=== PATIENT | female | born 1965 | race African-American/Black ===

== ENCOUNTER 2016-09-25 09:27 | Emergency (ER) | payer BC ==
[~2016-09-25] VITALS: Ht 157.5 cm; Wt 111.1 kg
[~2016-09-25 09:27] MED LIST: ASPI-482 PO; ATOR40TA59 PO; CETI10TA16 PO; CHOL10007 PO; CITA20TA5 PO; CYAN25008 PO; FERROUS GLUCON325 M1 PO; HYDR25TA9 PO; LISI10TA2 PO; MAGN250T5 PO; METO25TA9 PO; MULT1TAB97 PO; MV,C400T2 PO; OMEP20CA9 PO; POTA500T5 PO; PRAS10TA4 PO; SUCR1TAB29 PO; TRAZ150T55 PO; ZINC15TA2 PO
[2016-09-25 10:10] VITALS: BP 122/58
[2016-09-25] MEDS ORDERED: DEXAMETHASONE SOD PHOS 20 MG/5 ML VIAL. IM ONE (11:00)
[2016-09-25] MEDS ORDERED: HYDR-971 PO (11:22)
--- NOTE | 2016-09-25 11:22 | PHYS DOC ---
Past Medical History Past Medical History: Anxiety Additional Past Medical Histor: increased stress level d/t terminally ill father. Past Surgical History: Other Additional Past Surgical Histo: fatty tumor removed. Alcohol Use: None Drug Use: None Adult General Chief Complaint Chief Complaint: HIP PAIN HPI HPI Patient is a 51 year old female presents with complaint of atraumatic left hip pain for the past 24 hours. Patient denies any history of inflammatory arthritide's. She denies any previous fractures or dislocations to her left hip. Review of Systems Review of Systems Constitutional: Denies fever or chills [] Eyes: Denies change in visual acuity, redness, or eye pain [] HENT: Denies nasal congestion or sore throat [] Respiratory: Denies cough or shortness of breath [] Cardiovascular: No additional information not addressed in HPI [] GI: Denies abdominal pain, nausea, vomiting, bloody stools or diarrhea [] : Denies dysuria or hematuria [] Musculoskeletal: Denies back pain or joint pain [] Integument: Denies rash or skin lesions [] Neurologic: Denies headache, focal weakness or sensory changes [] Endocrine: Denies polyuria or polydipsia [] Current Medications Current Medications Current Medications Medications (Trade) Dose Ordered Sig/Shilpa Start Time Stop Time Status Last Admin Dose Admin Dexamethasone Sodium Phosphate (Decadron) 10 mg 1X ONCE 09/25/16 11:00 09/25/16 11:01 DC 09/25/16 11:01 10 MG Allergies Allergies Allergies Coded Allergies Type Severity Reaction Last Updated Verified No Known Drug Allergies 01/16/16 No Physical Exam Physical Exam Constitutional: Well developed, well nourished, no acute distress, non-toxic appearance. [] HENT: Normocephalic, atraumatic, bilateral external ears normal, oropharynx moist, no oral exudates, nose normal. [] Eyes: PERRLA, EOMI, conjunctiva normal, no discharge. [] Neck: Normal range of motion, no tenderness, supple, no stridor. [] Cardiovascular:Heart rate regular rhythm, no murmur [] Lungs & Thorax: Bilateral breath sounds clear to auscultation [] Abdomen: Bowel sounds normal, soft, no tenderness, no masses, no pulsatile masses. [] Skin: Warm, dry, no erythema, no rash. [] Back: No tenderness, no CVA tenderness. [] Extremities: A since lower back and left hip were exposed for evaluation. There are no skin lesions overlying her lower back or left hip. There is tenderness to palpation the posterior lateral aspect of patient's left hip without palpable defect or deformity. There is no heat to the touch. Neurologic: Alert and oriented X 3, normal motor function, normal sensory function, no focal deficits noted. [] Psychologic: Affect normal, judgement normal, mood normal. [] Current Patient Data Vital Signs Vital Signs Date Time Temp Pulse Resp B/P Pulse Ox O2 Delivery O2 Flow Rate FiO2 09/25/16 10:10 97.9 92 18 122/58 98 Room Air 97.9 Lab Values Laboratory Tests Test 09/25/16 11:03 Glucose (Fingerstick) 137mg/dL (70-99) H EKG EKG [] Radiology/Procedures Radiology/Procedures [] Course & Med Decision Making Course & Med Decision Making Patient reports that she is a diabetic that is controlled by diet and activity. Her Accu-Chek here today is 136. Dragon Disclaimer Dragon Disclaimer This electronic medical record was generated, in whole or in part, using a voice recognition dictation system. Departure Departure Impression: Primary Impression: Trochanteric bursitis of left hip Disposition: HOME, SELF-CARE Condition: GOOD Referrals: GARRY MARSHALL MD (PCP) Patient Instructions: Hip Bursitis, [id number] Additional Instructions: 1. Your blood sugar today is 136. 2. Review the discharge instructions for self-care and reasons to return to the emergency department. 3. Take the medication as prescribed. 4. Contact your primary care doctor today for follow-up appointment to be seen within the next 5-7 days. Scripts Hydrocodone/Apap 5-325 (Lackey 5-325 Tablet)1 Each Tablet1 Tab PO PRN Q6HRS PRN PAIN #15 TAB Prov:AIDAN REARDON 09/25/16 AIDAN REARDON Sep 25, 2016 11:22
== END 2016-09-25 11:33 | disposition home or self-care (01) ==
LOC: ER 09:27
DX: M70.62 Trochanteric bursitis, left hip (principal); F41.9 Anxiety disorder, unspecified
CPT/HCPCS: 82947; 96372; 99283; J1100

== ENCOUNTER 2016-11-11 15:09 | Inpatient (IN) | payer BC ==
[~2016-11-11] VITALS: Ht 165.1 cm; Wt 113.5 kg
[~2016-11-11 15:09] MED LIST changes: +HYDR-971 PO
--- NOTE | 2016-11-11 15:56 | EKG ---
[facility] [address] [place] [address] Test Date: 2016-11-11 Test Time: 15:26:32 Pat Name: BEKA JUAREZ Department: Room: Gender: F Materials Supervisor: : [id number] Requested By: VAIBHAV ROSENTHAL Order Number: [id number] Reading MD: Measurements Intervals [place] Rate: 71 P: 32 [place]: 160 QRS: -12 QRSD: 88 T: 26 QT: 368 QTc: 404 Interpretive Statements SINUS RHYTHM LEFTWARD AXIS OTHERWISE NORMAL ECG RI6.01 Unconfirmed report No previous ECG available for comparison
--- NOTE | 2016-11-11 15:58 | PHYS DOC ---
Past Medical History Past Medical History: Anxiety Additional Past Medical Histor: increased stress level d/t terminally ill father.CARDIAC STENT PLACED 2015 Past Surgical History: Other Additional Past Surgical Histo: fatty tumor removed. Alcohol Use: None Drug Use: None Adult General Chief Complaint Chief Complaint: CHEST PAIN HPI HPI Patient is a 51 year old female who presents with chest discomfort. Patient reports since yesterday she has had discomfort in the middle of her chest. She describes this as "slight pain comes and goes". No clear inciting or mitigating factors. She denies shortness of breath. In addition, she reports a the past couple weeks she has just not been feeling well in general and has been getting lightheaded occasionally. She has been congested and has chronic issues with her allergies and sinuses. She is frustrated because her health has gone downhill since her father recently. She believes some of her symptoms may be due to the medication she is on. She has not taken anything for her acute symptoms. Review of Systems Review of Systems Constitutional: Intermittent lightheadedness, feeling poorly in general. Denies fever or chills Eyes: Denies change in visual acuity or eye pain HENT: Chronic sinus congestion Respiratory: Denies cough or shortness of breath Cardiovascular: Midsternal chest discomfort GI: Denies abdominal pain, nausea, vomiting, bloody stools or diarrhea : Denies dysuria or hematuria Musculoskeletal: Denies back pain or joint pain Integument: Denies rash or skin lesions Neurologic: Denies headache, focal weakness or sensory changes Allergies Allergies Allergies Coded Allergies Type Severity Reaction Last Updated Verified No Known Drug Allergies 01/16/16 No Physical Exam Physical Exam Constitutional: Well developed, well nourished, no acute distress, non-toxic appearance HENT: Normocephalic, atraumatic, bilateral external ears normal Eyes: EOMI, conjunctiva normal, no discharge Neck: Normal range of motion, no stridor Cardiovascular: Heart rate normal, regular rhythm, no murmur Lungs & Thorax: Bilateral breath sounds clear to auscultation Abdomen: Bowel sounds normal, soft, non-distended, no TTP Skin: Warm, dry, no erythema, no rash Extremities: No obvious deformity, no edema Neurologic: Alert and oriented X 3, no gross deficits noted Psychologic: Tearful Current Patient Data Vital Signs Vital Signs Date Time Temp Pulse Resp B/P Pulse Ox O2 Delivery O2 Flow Rate FiO2 11/11/16 16:47 72 124/60 97 Room Air 11/11/16 15:20 98.0 18 98.0 Lab Values Laboratory Tests Test 11/11/16 15:45 11/11/16 16:00 White Blood Count 7.5x10^3/uL (4.0-11.0) Red Blood Count 4.53x10^6/uL (3.50-5.40) Hemoglobin 12.4g/dL (12.0-15.5) Hematocrit 37.7% (36.0-47.0) Mean Corpuscular Volume 83fL (79-100) Mean Corpuscular Hemoglobin 28pg (25-35) Mean Corpuscular Hemoglobin Concent 33g/dL (31-37) Red Cell Distribution Width 14.9% (11.5-14.5) H Platelet Count 224x10^3/uL (140-400) Neutrophils (%) (Auto) 54% (31-73) Lymphocytes (%) (Auto) 36% (24-48) Monocytes (%) (Auto) 8% (0-9) Eosinophils (%) (Auto) 2% (0-3) Basophils (%) (Auto) 1% (0-3) Neutrophils # (Auto) 4.0x10^3uL (1.8-7.7) Lymphocytes # (Auto) 2.7x10^3/uL (1.0-4.8) Monocytes # (Auto) 0.6x10^3/uL (0.0-1.1) Eosinophils # (Auto) 0.2x10^3/uL (0.0-0.7) Basophils # (Auto) 0.1x10^3/uL (0.0-0.2) Sodium Level 146mmol/L (136-145) H Potassium Level 4.1mmol/L (3.5-5.1) Chloride Level 109mmol/L (98-107) H Carbon Dioxide Level 30mmol/L (21-32) Anion Gap 7 (6-14) Blood Urea Nitrogen 17mg/dL (7-20) Creatinine 0.9mg/dL (0.6-1.0) Estimated GFR (Cockcroft-Gault) 79.3 Glucose Level 102mg/dL (70-99) H Calcium Level 9.0mg/dL (8.5-10.1) Troponin I Quantitative < 0.017ng/mL (0.000-0.055) Thyroid Stimulating Hormone (TSH) 0.589uIU/mL (0.358-3.74) Urine Color Yellow Urine Clarity Clear Urine pH 8.0 Urine Specific [place] 1.025 Urine Protein Negativemg/dL (NEG-TRACE) Urine Glucose (UA) Negativemg/dL (NEG) Urine Ketones (Stick) Negativemg/dL (NEG) Urine Blood Negative (NEG) Urine Nitrite Negative (NEG) Urine Bilirubin Negative (NEG) Urine Urobilinogen Dipstick 1.0mg/dL (0.2 mg/dL) Urine Leukocyte Esterase Small (NEG) Urine RBC 0/HPF (0-2) Urine WBC 1-4/HPF (0-4) Urine Squamous Epithelial Cells Occ/LPF Urine Amorphous Sediment Present/HPF Urine Bacteria Few/HPF (0-FEW) Urine Mucus Slight/LPF Laboratory Tests 11/11/16 15:45 Laboratory Tests 11/11/16 15:45 EKG EKG EKG (my read): sinus rhythm, rate 71, normal axis, intervals wnl, no acute ischemic changes Radiology/Procedures Radiology/Procedures CXR: Impression: No acute abnormality is seen. Course & Med Decision Making Course & Med Decision Making Pertinent Labs and Imaging studies reviewed. (See chart for details) Patient is 51-year-old female who presents with chest discomfort. Although patient is vague with her symptoms, must consider ACS especially given the patient has coronary stent. Will check EKG, chest x-ray, labs to evaluate. Dose of aspirin ordered. EKG and imaging results as above. Blood work unremarkable. Discussed results with patient, who continues to have occasional chest discomfort. Discussed with Dr. Robles (covering for Dr. Casas), will admit under his care for further evaluation and treatment. Dragon Disclaimer Dragon Disclaimer This electronic medical record was generated, in whole or in part, using a voice recognition dictation system. Departure Departure Impression: Primary Impression: Chest pain Disposition: ADMITTED INPATIENT Admitting Physician: Kelly Robles Condition: STABLE Referrals: GARRY CASAS MD (PCP) VAIBHAV ROSENTHAL MD Nov 11, 2016 15:58
[2016-11-11 16:00] LABS: BASO # 0.1 x10^3/uL (0.0-0.2); BASO % 1 % (0-3); EOS % 2 % (0-3); HEMATOCRIT 37.7 % (36.0-47.0); HEMOGLOBIN 12.4 g/dL (12.0-15.5); LYMPH # 2.7 x10^3/uL (1.0-4.8); LYMPH % 36 % (24-48); MEAN CORPUSCULAR HEMOGLOBIN 28 pg (25-35); MEAN CORPUSCULAR HGB CONC 33 g/dL (31-37); MEAN CORPUSCULAR VOLUME 83 fL (79-100); MONO % 8 % (0-9); NEUT % 54 % (31-73); PLATELET COUNT 224 x10^3/uL (140-400); RED BLOOD COUNT 4.53 x10^6/uL (3.50-5.40); RED CELL DISTRIBUTION WIDTH 14.9 % (11.5-14.5); WHITE BLOOD COUNT 7.5 x10^3/uL (4.0-11.0)
--- NOTE | 2016-11-11 16:19 | RAD ---
PA and lateral chest radiographs 11/11/2016 Clinical history: Chest discomfort. History of coronary artery disease with stent placement. PA and lateral digital radiographs of the chest were obtained. Comparison study is dated 08/15/2015. The cardiac silhouette is borderline enlarged. The thoracic aorta is tortuous. No acute pulmonary infiltrate is seen. No pleural effusion or pneumothorax is noted. Degenerative changes are seen involving the thoracic spine and both shoulders. Impression: No acute abnormality is seen.
[2016-11-11 16:23] LABS: BILIRUBIN,URINE NEGATIVE (NEG); GLUCOSE,URINE NEGATIVE (NEG); NITRITE,URINE NEGATIVE (NEG); PROTEIN,URINE NEGATIVE (NEG-TRACE)
[2016-11-11 16:34] LABS: BACTERIA,URINE FEW /HPF (0-FEW); RBC,URINE 0 /HPF (0-2); SQUAMOUS EPITHELIAL CELL,UR OCC /LPF
[2016-11-11 16:36] LABS: CREATININE 0.9 mg/dL (0.6-1.0); GFR 79.3; POTASSIUM 4.1 mmol/L (3.5-5.1)
[2016-11-11] MEDS ORDERED: ONDANSETRON PF 4 MG/2 ML VIAL. IV PRN (18:00)
[2016-11-11] MEDS ORDERED: MORPHINE SULFATE 4 MG/ML DISP.SYRIN. IV PRN (18:00)
--- NOTE | 2016-11-11 18:08 | ACF ---
Admission Forms Criteria CARDIOLOGY GRG Clinical Indications for Admission to Inpatient Care ( Place 'X' for any and all applicable criteria): Hospital admission is needed for appropriate care of the patient because of ANY ONE of the following (1): [ ] I. Hemodynamic instability as indicated by ALL of the following (1)(2)(3) (4)(5) [ ]a) Vital signs or other findings not as expected for chronic patient condition or baseline [ ]b) Instability indicated by ANY ONE of the following: [ ]i) Hypotension [ ]ii) Symptomatic Tachycardia unresponsive to treatment ( e.g., analgesia, fluids, sedation as indicated) [ ]iii) Inadequate perfusion indicated by ANY ONE of the following: [ ] 1) Lactic acidosis (> 2 mmol/L) [ ] 2) New abnormal capillary refill (> 3 seconds) [ ] 3) Reduced urine output [ ] 4) New altered mental status [ ]iv) Orthostatic vital sign changes unresponsive to treatment (e.g., fluids) [ ]v) IV inotropic or vasopressor medication required to maintain adequate blood pressure or perfusion [ ] II. Severe heart failure as indicated by ANY ONE of the following(17)(18) [ ]a) Respiratory distress [ ]b) Hypotension [ ]c) Anasarca (refractory to outpatient therapy) [ ]d) Cardiac arrhythmias of immediate concern [ ]e) Myocardial ischemia [ ] III. Cardiac arrhythmias or findings of immediate concern indicated by ANY ONE of the following (19)(20): [ ] a) Heart rhythms that are inherently dangerous or unstable indicated by ANY ONE of the following (21)(22)(23): [ ] i) Resuscitated ventricular fibrillation or cardiac arrest [ ] ii) Ventricular escape rhythm [ ] iii) Sustained ventricular tachycardia (30 seconds or more of ventricular rhythm at greater than 100 beats per minute) [ ] iv) Nonsustained ventricular tachycardia and ANY ONE of the following: [ ] 1) Suspected cardiac ischemia as cause or consequence of ventricular tachycardia [ ] 2) In setting of acute myocarditis [ ] b) Unstable cardiac conduction defects indicated by ANY ONE of the following(23)(24)(25) [ ] i) Type II second-degree atrioventricular block [ ]ii) Third-degree atrioventricular block [ ]iii) New-onset left bundle branch block with suspected myocardial ischemia [ ]c) Any heart rhythm and ANY ONE of the following (21)(22)(26)(27) (28) [ ] i) Continuous long-term ECG monitoring needed (e.g., initiation of drug requiring monitoring for more than 24 hours) [ ] ii) Patient has automatic implanted cardioverter defibrillator that is repeatedly firing, malfunctioning, or in need of immediate adjustment of settings beyond the scope of ambulatory or observation care [ ]d) Heart rhythms of concern due to ANY ONE of the following: [ ] i) Hypotension [ ] ii) Respiratory distress [ ] iii) Association with other significant symptoms (e.g., bradycardia with syncope or ongoing dizziness, supraventricular tachycardia with chest pain (14)(15)(17) [ ] IV. Monitoring for cardiac contusion beyond the scope of observation care needed [A](30)(31)(32) [ ] V. Surgical or device complication (e.g., valve replacement complication , pacemaker dysfunction) (35)(41)(44)(45)(46) [ ] . Inpatient palliative care needed. [B](49) Also use Inpatient Palliative Care Criteria [ ] VII. Nonbacterial thrombotic (marantic) endocarditis (36)(43)(47)(48) [X] VIII. Cardiology condition, symptom, or finding for which emergency and observation care has failed or are not considered appropriate. [ ] IX. Acute valvular disease requiring inpatient as indicated by ANY ONE of the following (41) [ ]a) Acute valvular regurgitation (42) [ ]b) Noninfectious valvulitis (43) [ ]c) Obstructive valve thrombosis [ ]d) Paravalvular leak [ ]e) Other significant valvular disorder remaining after emergency or observation level of care (as appropriate) [ ]X. Pericardial disease requiring inpatient treatment as indicated by ANY ONE of the following (33)(34)(35)(36)(37) [ ]a) Suspected tamponade (38)(39)(40) [ ]b) Hemopericardium [ ]c) Other significant pericardial disorder remaining after emergency or observation level of care (as appropriate) [ ] XI. Cardiac ischemia beyond scope of emergency and observation care. [ ] XII. Hypertension requiring inpatient treatment as indicated by ANY ONE of the following (6)(7)(8) [ ]a) SBP greater than 220 mm Hg or DBP greater than 120 mmHg despite treatment [ ]b) SBP greater than 140 mm Hg or DBP greater than 100 mm Hg with evidence of acute end organ damage as indicated by ANY ONE of the following [ ] i) Encephalopathy [ ] ii) Acute renal failure as indicated by new onset of ANY ONE of the following (9)(10)(11)(12)(13) [ ]1) 3-fold rise in serum creatinine from baseline [ ]2) Serum creatinine greater than 4 mg/dL ( 354 micromoles/L) with acute rise greater than 0.5 mg/dL (44.2 micromoles/L) [ ]3) Reduction of more than 75% in estimated glomerular filtration rate from baseline [ ]4) Estimated glomerular filtration rate less than 35 mL/min/1.73m2 (0.59 mL/sec/1.73m2) in child up to 18 years of age [ ]5) Cessation of urine output indicated by ALL of the following [ ]A. Adequate volume status [ ]B. Inadequate urine output as indicated by ANY ONE of the following [ ]a. Urine output less than 0.3 mL/kg/hr for 24 hours [ ]b. Anuria (urine output less than 0.1 mL/kg/hr) for 12 hours [ ] iii) Aortic dissection [ ] iv) Myocardial Ischemia [ ] v) Left ventricular heart failure [ ]vi) Retinal Hemorrhage [ ]vii) Other significant finding [ ]c) Hypertension in child requiring inpatient treatment as indicated by ALL of the following(14)(15)(16) [ ] i) Outpatient treatment not effective, not available, or not appropriate [ ]ii) SBP or DBP greater than 95th percentile for age [ ]iii) Evidence of acute end organ damage as indicated by ANY ONE of the following [ ]1) Altered mental status [ ]2) Acute renal failure as indicated by new onset of ANY ONE of the following(9)(10)(11)(12)(13) [ ]A. 3-fold rise in serum creatinine from baseline [ ]B. Serum creatinine greater than 4 mg/dL (354 micromoles/L) with acute rise greater than 0.5 mg/dL (44.2 micromoles/L) [ ]C. Reduction of more than 75% in estimated glomerular filtration rate from baseline [ ]D. Estimated glomerular filtration rate less than 35 mL/min/1.73m2 (0.59 mL/sec/1.73m2) in child up to 18 years of age [ ]E. Cessation of urine output indicated by ALL of the following [ ]a. Adequate volume status [ ]b. Inadequate urine output as indicated by ANY ONE of the following [ ]i) Urine output less than 0.3 mL/kg/hr for 24 hours [ ]ii) Anuria ( urine output less than 0.1 mL/kg/hr) for 12 hours [ ]3) Severe headache [ ]4) Visual disturbance [ ]5) Retinal hemorrhage [ ]6) Other significant finding [ ]XIII. Complications of transplanted heart indicated by ANY ONE of the following(61): [ ]a) Acute graft rejection requiring inpatient management (eg, intravenous immunosuppression)(62)(63) [ ]b) Acute graft heart failure indicated by ANY ONE of the following(64): [ ]i) Hemodynamic instability [ ]ii) Cardiac arrhythmias of immediate concern [ ]iii) Pulmonary edema that is very severe (eg, mechanical ventilation needed, imminent or likely, need for 100% oxygen to keep oxygen saturation above 90%) [ ]iv) Pulmonary edema that is persistent as indicated by ALL of the following: [ ]1) New need for oxygen therapy to keep oxygen saturation above 90% (or increased FiO2 need from baseline) [ ]2) Has not improved sufficiently with emergency department or observation care IV diuretics or other heart failure treatments[E] [ ]v) Altered mental status that is severe or persistent [ ]vi) Increased creatinine (new on laboratory test) with reduction of more than 50% in estimated glomerular filtration rate from baseline [ ]vii) Progressively (ongoing) rising creatinine (known from past laboratory test) with reduction of more than 25% in estimated glomerular filtration rate from baseline [ ]viii) Acute renal failure [ ]ix) Acute peripheral ischemia (eg, examination shows pulseless, cool, mottled, or cyanotic extremity) [ ]x) Pulmonary artery catheter monitoring needed [ ]xi) Other sign or symptom of heart failure requiring inpatient treatment (ie, too severe or not responsive to outpatient and observation care treatment) [ ]c) Infection requiring inpatient management (eg, Hemodynamic instability, need for intravenous antimicrobial treatment)(66)(67)(68)(69)(70) [ ]d) Cardiac allograft vasculopathy requiring inpatient management ( eg evidence of cardiac ischemia)(71) [ ]e) Other complication of transplanted heart (eg, stroke, severe pulmonary hypertension, severe valvular dysfunction) requiring inpatient management(72) The original [facility] content created by [facility] has been revised. The portions of the content which have been revised are identified through the use of italic text or in bold, and [facility] has neither reviewed nor approved the modified material. All other unmodified content is copyright [email or web address]. Please see references footnoted in the original [facility] edition 2016 Admission Criteria Met?: Yes CHUY MATA Nov 11, 2016 18:08
[2016-11-11] MEDS ORDERED: ASPIRIN 81 MG TAB.CHEW PO ONE (18:15)
--- NOTE | 2016-11-11 19:10 | PDOC ---
Provider Note Provider Note H&P dictated [id number] Jarad MILLS MD Nov 11, 2016 19:10
[2016-11-11] MEDS: METOPROLOL SUCC 24HR ER 25 MG TAB.ER.24H. PO SCH (20:00)
[2016-11-11] MEDS: LISINOPRIL 10 MG TABLET PO SCH (20:00)
[2016-11-11] MEDS: CITALOPRAM 20 MG TABLET. PO SCH (20:05)
[2016-11-11] MEDS: ATORVASTATIN CALCIUM 40 MG TABLET. PO SCH (20:30)
[2016-11-11] MEDS: traZODone 50 MG TABLET. PO SCH (20:30)
[2016-11-11 21:06] VITALS: BP 131/77
--- NOTE | 2016-11-11 22:17 | HP ---
ADMIT DATE: 11/11/2016 ADMISSION DIAGNOSIS: Chest pain. HISTORY OF PRESENT ILLNESS: This is a 51-year-old obese -[place] female, whose health problems began in 08/2015 after her father . She normally sees Dr. Casas in the office. She has a history of heart disease, having had stents placed soon after her father . She has done relatively well this past year, but developed some bursitis pain in her hips and it has progressed to her lower back. She saw Dr. Yang in the office, who diagnosed her with that and referred her for therapy. She has been going to physical therapy recently, and she mentioned today that she was not feeling well and was having some vague chest pain. Her head had felt foggy and they encouraged her to come to the Emergency Room, which she did, where she was seen and evaluated. She told the ER doctor that she got some discomfort in the middle of her chest yesterday and she has had some slight pain that had been coming and going. It really was not associated with any activity. She was not short of breath with it. SHE HAS HAD SOME RECENT ALLERGY SYMPTOMS THAT TYPICALLY ARE SEASONAL, BUT A LITTLE EARLIER. She has been feeling frustrated - it sounds like she has been depressed since her father . PAST MEDICAL HISTORY: Also significant for anxiety. PAST SURGICAL HISTORY: Procedures include cardiac stent last year and fatty lipomatous tumor removed. She has had multiple ____. She also has a history of hypertension, hyperlipidemia, sleep apnea, diverticulosis, colon polyps, irritable bowel, GERD, osteoarthritis, diabetes, depression, anxiety, and anemia. ALLERGIES: She has no known drug allergies. HOME MEDICATIONS: Include aspirin 81 mg daily, atorvastatin 40 mg at bedtime, cetirizine 10 mg daily, vitamin D 1000 units daily, citalopram 20 mg at bedtime, B12 1000 mcg daily, iron gluconate 325 mg daily, [place] 5/325 one tablet q. 6 h. p.r.n. pain, lisinopril 10 mg daily, magnesium oxide 250 mg daily, metoprolol 25 mg extended release daily, multivitamin daily, Estroven maximum-strength caplet 400 mcg daily, omeprazole 20 mg daily, Effient 10 mg with breakfast, trazodone 150 mg at bedtime, and zinc oxide 30 mg daily. FAMILY HISTORY: Father in 08/2015 with terminal illness. SOCIAL HISTORY: No tobacco or drug use. REVIEW OF SYSTEMS: CONSTITUTIONAL: Some intermittent lightheadedness and general fatigue, but no fever or chills. No recent travel. HEENT: No eye symptoms. Nose: Positive for rhinorrhea and ALLERGY SYMPTOMS. Eyes have not been watery. RESPIRATORY: Negative for cough. CARDIOVASCULAR: As above. GASTROINTESTINAL: Negative for acute abdominal pain, nausea, vomiting, or change in her stools. GENITOURINARY: Negative for incontinence. MUSCULOSKELETAL: Positive for lumbar back pain and pain into both hips with a history of bursitis for which she is going to therapy. SKIN: No new rashes or lesions. NEUROLOGIC: Vague headache, but no change in her functional status. PSYCHIATRIC: Consistent with prolonged grief and adjustment disorder, likely depression. PHYSICAL EXAMINATION: GENERAL: She is not in any acute distress. She is comfortable. Normal respiratory effort. VITAL SIGNS: Stable. She is afebrile. Blood pressure is normal. HEENT: POSITIVE FOR ALLERGIC FEATURES. There is some sinus congestion. Sclerae are nonicteric. Conjunctivae are clear. Tongue is moist. NECK: Supple. HEART: Regular rate and rhythm. No murmurs heard. LUNGS: Clear. No reproducible chest wall pain is present. ABDOMEN: Obese, soft, nondistended, and nontender without definite masses. EXTREMITIES: No clubbing, cyanosis, or peripheral edema, and no gross neurological deficits. Her affect is somewhat flat and she is a bit frustrated. She does have bilateral trochanteric area hip discomfort and gait is not tested. The symptoms are suggestive of spinal stenosis. LABORATORY DATA: CBC is unremarkable. Chemistries: Sodium is slightly high at 146, chloride 109, and glucose 102. Cardiac enzymes are normal with a troponin less than 0.017. TSH is normal. Urinalysis shows a small leukocyte esterase, but occasional squamous epithelial cell, and there are 1-4 white cells. IMAGING STUDIES: Chest x-ray, no acute abnormality. EKG, no acute changes. ASSESSMENT AND PLAN: Chest pain in a woman, slightly over 1 year and removed from heart catheterization and cardiac stent placement with known coronary artery disease, who has had ongoing depression since her father . PLAN: Since she is at relative high risk for ongoing heart disease, she is admitted for further cardiac evaluation and testing with Cardiology consultation. W Ki MILLS MD DR: Eva JOB#: [id number] / [id number]
[2016-11-11 23:00] VITALS: BP 110/62
[2016-11-12 03:00] VITALS: BP 128/69
[2016-11-12] MEDS: ACETAMINOPHEN 325 MG TABLET. PO PRN ×2 (03:41→17:45)
[2016-11-12 07:20] VITALS: BP 124/75
[2016-11-12] MEDS: PANTOPRAZOLE 40 MG TABLET. PO SCH (07:38)
[2016-11-12] MEDS ORDERED: PRASUGREL 10 MG TABLET. PO SCH (08:00)
[2016-11-12] MEDS: FERROUS SULFATE 325 MG TABLET PO SCH (08:44)
[2016-11-12] MEDS: ASPIRIN ENTERIC COATED 81 MG TABLET.DR. PO SCH (08:44)
[2016-11-12] MEDS: METOPROLOL SUCC 24HR ER 25 MG TAB.ER.24H. PO SCH (08:44)
[2016-11-12] MEDS: MULTIVITAMIN with MINERAL TABLET. PO SCH (08:44)
[2016-11-12] MEDS: CHOLECALCIFEROL (VITAMIN D3) 1,000 UNIT TABLET PO SCH (08:44)
[2016-11-12] MEDS: CETIRIZINE HCL 10 MG TABLET PO SCH (08:44)
[2016-11-12] MEDS: MAGNESIUM OXIDE 400 MG TABLET PO SCH (08:45)
[2016-11-12] MEDS: LISINOPRIL 10 MG TABLET PO SCH (08:47)
[2016-11-12] MEDS: HYDROCODONE/APAP 5/325MG TABLET. PO PRN ×2 (08:47→19:35)
--- NOTE | 2016-11-12 08:57 | PDOC ---
PROGRESS NOTES Subjective Subjective No further chest pain but still having hip and back pain and didn'yt sleep well , cardiac enzymes negative Objective Objective Vital Signs Date Time Temp Pulse Resp B/P Pulse Ox O2 Delivery O2 Flow Rate FiO2 11/12/16 08:47 Room Air 11/12/16 08:44 70 124/75 11/12/16 07:20 97.5 19 97 97.5 Intake and Output 11/12/16 07:00 Intake Total 480 ml Balance 480 ml Intake Oral 480 ml # Voids 1 Physical Exam Abdomen: Normal bowel sounds, Soft Heart: Regular rate Extremities: No clubbing, No cyanosis, No edema General: Alert, Oriented X3, Cooperative HEENT: Atraumatic Lungs: Clear to auscultation MUSCULOSKELETAL: Other (trochanteric tenderness ) Neck: Supple Neuro: Normal speech Psych/Mental Status: Mental status NL Skin: No breakdown Assessment Assessment Problems Medical Problems: (1) Chest pain Status: Acute Plan Plan of Care stress MPI, ( will need 2 days), cardiology consult, will Xray hips and lumbar spine and consult Dr. Antonio as her back and hip pain is limiting her activity Comment Review of Relevant I have reviewed the following items angelo (where applicable) has been applied. Labs Laboratory Tests Test 11/11/16 15:45 11/11/16 16:00 11/11/16 23:44 11/12/16 06:15 White Blood Count 7.5x10^3/uL (4.0-11.0) Red Blood Count 4.53x10^6/uL (3.50-5.40) Hemoglobin 12.4g/dL (12.0-15.5) Hematocrit 37.7% (36.0-47.0) Mean Corpuscular Volume 83fL (79-100) Mean Corpuscular Hemoglobin 28pg (25-35) Mean Corpuscular Hemoglobin Concent 33g/dL (31-37) Red Cell Distribution Width 14.9% (11.5-14.5) Platelet Count 224x10^3/uL (140-400) Neutrophils (%) (Auto) 54% (31-73) Lymphocytes (%) (Auto) 36% (24-48) Monocytes (%) (Auto) 8% (0-9) Eosinophils (%) (Auto) 2% (0-3) Basophils (%) (Auto) 1% (0-3) Neutrophils # (Auto) 4.0x10^3uL (1.8-7.7) Lymphocytes # (Auto) 2.7x10^3/uL (1.0-4.8) Monocytes # (Auto) 0.6x10^3/uL (0.0-1.1) Eosinophils # (Auto) 0.2x10^3/uL (0.0-0.7) Basophils # (Auto) 0.1x10^3/uL (0.0-0.2) Sodium Level 146mmol/L (136-145) Potassium Level 4.1mmol/L (3.5-5.1) Chloride Level 109mmol/L (98-107) Carbon Dioxide Level 30mmol/L (21-32) Anion Gap 7 (6-14) Blood Urea Nitrogen 17mg/dL (7-20) Creatinine 0.9mg/dL (0.6-1.0) Estimated GFR (Cockcroft-Gault) 79.3 Glucose Level 102mg/dL (70-99) Calcium Level 9.0mg/dL (8.5-10.1) Troponin I Quantitative < 0.017ng/mL (0.000-0.055) < 0.017ng/mL (0.000-0.055) < 0.017ng/mL (0.000-0.055) Thyroid Stimulating Hormone (TSH) 0.589uIU/mL (0.358-3.74) Urine Color Yellow Urine Clarity Clear Urine pH 8.0 Urine Specific [place] 1.025 Urine Protein Negativemg/dL (NEG-TRACE) Urine Glucose (UA) Negativemg/dL (NEG) Urine Ketones (Stick) Negativemg/dL (NEG) Urine Blood Negative (NEG) Urine Nitrite Negative (NEG) Urine Bilirubin Negative (NEG) Urine Urobilinogen Dipstick 1.0mg/dL (0.2 mg/dL) Urine Leukocyte Esterase Small (NEG) Urine RBC 0/HPF (0-2) Urine WBC 1-4/HPF (0-4) Urine Squamous Epithelial Cells Occ/LPF Urine Amorphous Sediment Present/HPF Urine Bacteria Few/HPF (0-FEW) Urine Mucus Slight/LPF Laboratory Tests Test 11/11/16 15:45 11/11/16 16:00 11/11/16 23:44 3/7/17 06:15 White Blood Count 7.5x10^3/uL (4.0-11.0) Red Blood Count 4.53x10^6/uL (3.50-5.40) Hemoglobin 12.4g/dL (12.0-15.5) Hematocrit 37.7% (36.0-47.0) Mean Corpuscular Volume 83fL (79-100) Mean Corpuscular Hemoglobin 28pg (25-35) Mean Corpuscular Hemoglobin Concent 33g/dL (31-37) Red Cell Distribution Width 14.9% (11.5-14.5) Platelet Count 224x10^3/uL (140-400) Neutrophils (%) (Auto) 54% (31-73) Lymphocytes (%) (Auto) 36% (24-48) Monocytes (%) (Auto) 8% (0-9) Eosinophils (%) (Auto) 2% (0-3) Basophils (%) (Auto) 1% (0-3) Neutrophils # (Auto) 4.0x10^3uL (1.8-7.7) Lymphocytes # (Auto) 2.7x10^3/uL (1.0-4.8) Monocytes # (Auto) 0.6x10^3/uL (0.0-1.1) Eosinophils # (Auto) 0.2x10^3/uL (0.0-0.7) Basophils # (Auto) 0.1x10^3/uL (0.0-0.2) Sodium Level 146mmol/L (136-145) Potassium Level 4.1mmol/L (3.5-5.1) Chloride Level 109mmol/L (98-107) Carbon Dioxide Level 30mmol/L (21-32) Anion Gap 7 (6-14) Blood Urea Nitrogen 17mg/dL (7-20) Creatinine 0.9mg/dL (0.6-1.0) Estimated GFR (Cockcroft-Gault) 79.3 Glucose Level 102mg/dL (70-99) Calcium Level 9.0mg/dL (8.5-10.1) Troponin I Quantitative < 0.017ng/mL (0.000-0.055) < 0.017ng/mL (0.000-0.055) < 0.017ng/mL (0.000-0.055) Thyroid Stimulating Hormone (TSH) 0.589uIU/mL (0.358-3.74) Urine Color Yellow Urine Clarity Clear Urine pH 8.0 Urine Specific [place] 1.025 Urine Protein Negativemg/dL (NEG-TRACE) Urine Glucose (UA) Negativemg/dL (NEG) Urine Ketones (Stick) Negativemg/dL (NEG) Urine Blood Negative (NEG) Urine Nitrite Negative (NEG) Urine Bilirubin Negative (NEG) Urine Urobilinogen Dipstick 1.0mg/dL (0.2 mg/dL) Urine Leukocyte Esterase Small (NEG) Urine RBC 0/HPF (0-2) Urine WBC 1-4/HPF (0-4) Urine Squamous Epithelial Cells Occ/LPF Urine Amorphous Sediment Present/HPF Urine Bacteria Few/HPF (0-FEW) Urine Mucus Slight/LPF Medications Current Medications Ondansetron HCl (Zofran) 4 mg PRN Q8HRS PRN IV NAUSEA/VOMITING; Start 11/11/16 at 18:00; Stop 11/12/16 at 17:59 Morphine Sulfate 4 mg PRN Q2HR PRN IV PAIN; Start 11/11/16 at 18:00; Stop at 17:59 Acetaminophen (Tylenol) 650 mg PRN Q4HRS PRN PO FEVER Last administered on 03:41; Start 11/11/16 at 18:00; Stop 11/12/16 at 17:59 Aspirin (Children'S Aspirin) 324 mg 1X ONCE PO Last administered on 11/11/16 18:20; Start 11/11/16 at 18:15; Stop 11/11/16 at 18:16; Status DC Aspirin (Ecotrin) 81 mg DAILY PO Last administered on 11/12/16 08:44; Start 11/12/16 at 09:00 Atorvastatin Calcium (Lipitor) 40 mg QHS PO Last administered on 11/11/16 20:30 ; Start 11/11/16 at 21:00 Cetirizine HCl (Zyrtec) 10 mg DAILY PO Last administered on 11/12/16 08:44; Start 11/12/16 at 09:00 Citalopram Hydrobromide (Celexa) 20 mg HS PO ; Start 11/11/16 at 21:00 Acetaminophen/ Hydrocodone Bitart (Lortab 5/325) 1 tab PRN Q6HRS PRN PO PAIN Last administered on 11/12/16 08:47; Start 11/11/16 at 19:15 Lisinopril (Prinivil) 10 mg DAILY PO ; Start 11/11/16 at 20:00 Metoprolol Succinate (Toprol Xl) 25 mg DAILY PO Last administered on 11/12/16 08:44; Start 11/11/16 at 20:00 Prasugrel (Effient) 10 mg DAILYWBKFT PO ; Start 11/12/16 at 08:00 Vitamin D (Vitamin D3) 1,000 unit DAILY PO Last administered on 11/12/16 08:44 ; Start 11/12/16 at 09:00 Ferrous Sulfate (Feosol) 325 mg DAILYWBKFT PO Last administered on 11/12/16 08: 44; Start 11/12/16 at 08:00 Magnesium Oxide (Magnesium Oxide) 200 mg DAILY PO Last administered on 08:45; Start 11/12/16 at 09:00 Multivitamins (Thera M Plus) 1 tab DAILY PO Last administered on 11/12/16 08:44 ; Start 11/12/16 at 09:00 Non-Formulary Medication 400 mcg DAILY PO ; Start 11/12/16 at 09:00; Status UNV Pantoprazole Sodium (Protonix) 40 mg DAILYAC PO Last administered on 11/12/16 07:38; Start 11/12/16 at 07:30 Trazodone HCl (Desyrel) 150 mg QHS PO Last administered on 11/11/16 20:30; Start 11/11/16 at 21:00 Active Scripts Active [place] 5-325 Tablet (Acetaminophen/Hydrocodone Bitart) 1 Each Tablet 1 Tab PO PRN Q6HRS PRN Atorvastatin Calcium 40 Mg Tablet 40 Mg PO QHS 30 Days Effient (Prasugrel Hcl) 10 Mg Tablet 10 Mg PO DAILYWBKFT 30 Days Metoprolol Succinate ( Xl ) (Metoprolol Succinate) 25 Mg Tab.er.24h 25 Mg PO DAILY 30 Days Lisinopril 10 Mg Tablet 10 Mg PO DAILY 30 Days Reported Vitamin B12 (Cyanocobalamin (Vitamin B-12)) 2,500 Mcg Tablet 1,000 Mcg PO Daily Multiple Vitamin (Multivitamin) 1 Each Tablet 1 Each PO DAILY Vitamelts Fast Dissolve (Zinc Oxide) 15 Mg Tab.rapdis 30 Ad PO Magnesium (Magnesium Oxide) 250 Mg Tablet 250 Mg PO DAILY Vitamin D3 (Cholecalciferol (Vitamin D3)) 1,000 Unit Capsule 1,000 Unit PO DAILY Cetirizine Hcl 10 Mg Tablet 10 Mg PO DAILY Ferrous Gluconate 325 Mg Tablet 325 Mg PO DAILY Trazodone Hcl 150 Mg Tablet 150 Mg PO HS Estroven Max Strength Caplet (Mv,Ca,Min/Fa/Herbal No.157) 400 Mcg Tablet 400 Mcg PO DAILY Aspir 81 (Aspirin) 81 Mg Tablet.dr 81 Mg PO DAILY Omeprazole 20 Mg Capsule.dr 20 Mg PO DAILY PRN Citalopram Hbr (Citalopram Hydrobromide) 20 Mg Tablet 20 Mg PO HS Vitals/I & O Vital Sign - Last 24 Hours 11/11/16 11/11/16 11/11/16 11/11/16 15:20 16:47 17:47 21:06 Temp 98.0 97.7 98.0 97.7 Pulse 75 72 80 70 Resp 18 18 B/P 153/72 124/60 144/80 131/77 Pulse Ox 97 97 97 98 O2 Delivery Room Air Room Air Room Air Room Air 11/11/16 11/11/16 11/12/16 11/12/16 21:29 23:00 03:00 07:20 Temp 96.8 96.3 97.5 96.8 96.3 97.5 Pulse 68 68 70 Resp 18 18 19 B/P 110/62 128/69 124/75 Pulse Ox 94 100 97 O2 Delivery Room Air Room Air Room Air Room Air 11/12/16 11/12/16 11/12/16 07:50 08:44 08:47 Pulse 70 B/P 124/75 O2 Delivery Room Air Room Air Intake and Output 11/11/16 11/11/16 11/12/16 15:00 23:00 07:00 Intake Total 480 ml Balance 480 ml Jarad MILLS MD Nov 12, 2016 08:57
[2016-11-12] MEDS ORDERED: [UNRECOGNIZED DRUG - REMARK] PO SCH (09:00)
--- NOTE | 2016-11-12 09:36 | PDOC2 ---
FRANKLIN SANTANA PRINTER FLOOR COVERING ASSISTANT 11/12/16 0936: CARDIAC CONSULT DATE OF CONSULT Date of Consult DATE: 11/12/16 TIME: 09:17 REASON FOR CONSULT Reason for Consult: Chest Pain REFERRING PHYSICIAN Referring Physician: Dr. Sosa SOURCE Source: Chart review, Patient HISTORY OF PRESENT ILLNESS HISTORY OF PRESENT ILLNESS This is a 51 yo female, with a h/o CAD sp PCI/GAMA to LAD, hypertension, hyperlipidemia, and diabetes, who presented with complaints of chest discomfort. Patient is somewhat of a poor historian. Reports occasional intermittent over the last, but she tries to "ignore it all". Has tried Ranexa in the past but due to cost issues had discontinued use. Most recently, patient reports she was in physical therapy for left hip pain/bursitis and developed left chest pain. Describes as stabbing in nature. Has occasional dull chest pain located in her central chest. No associated diaphoresis, nausea/vomiting, or palpitations. No recent orthopnea. Does report ongoing dyspnea and fatigued. H/o FRANCIA; is not compliant with CPAP. Has been lightheaded for the last couple of weeks. When specifics asked, again replies that she "tries to ignore it". Reports compliance with medications. Also s/o left hip pain; is scheduled to have left hip injection today. PAST MEDICAL HISTORY Cardiovascular: CAD (PCI/GAMA to LAD), HTN, Hyperlipidemia Pulmonary: Other (FRANCIA) GI: GERD, Irritable bowel disease Heme/Onc: Anemia NOS Psych: Anxiety, Depression Musculoskeletal: Osteoarthritis Rheumatologic: No pertinent hx Infectious disease: No pertinent hx ENT: No pertinent hx Renal/: No pertinent hx Endocrine: Diabetes Dermatology: No pertinent hx PAST SURGICAL HISTORY Past Surgical History: Other (see PMH) FAMILY HISTORY Family History: Diabetes, Hypertension, Stroke SOCIAL HISTORY Smoke: No ALCOHOL: none Lives: Alone Domestic Violence: Neg CURRENT MEDICATIONS CURRENT MEDICATIONS Current Medications Medications (Trade) Dose Ordered Sig/Shilpa Route PRN Reason Start Time Stop Time Status Last Admin Dose Admin Acetaminophen (Tylenol) 650 mg PRN Q4HRS PRN PO FEVER 11/11/16 18:00 11/12/16 17:59 11/12/16 03:41 Aspirin (Children'S Aspirin) 324 mg 1X ONCE PO 11/11/16 18:15 11/11/16 18:16 DC 11/11/16 18:20 Aspirin (Ecotrin) 81 mg DAILY PO 3/7/17 09:00 11/12/16 08:44 Atorvastatin Calcium (Lipitor) 40 mg QHS PO 11/11/16 21:00 11/11/16 20:30 Cetirizine HCl (Zyrtec) 10 mg DAILY PO 11/12/16 09:00 11/12/16 08:44 Acetaminophen/ Hydrocodone Bitart (Lortab 5/325) 1 tab PRN Q6HRS PRN PO PAIN 11/11/16 19:15 11/12/16 08:47 Metoprolol Succinate (Toprol Xl) 25 mg DAILY PO 11/11/16 20:00 11/12/16 08:44 Vitamin D (Vitamin D3) 1,000 unit DAILY PO 11/12/16 09:00 11/12/16 08:44 Ferrous Sulfate (Feosol) 325 mg DAILYWBKFT PO 11/12/16 08:00 11/12/16 08:44 Magnesium Oxide (Magnesium Oxide) 200 mg DAILY PO 11/12/16 09:00 11/12/16 08:45 Multivitamins (Thera M Plus) 1 tab DAILY PO 11/12/16 09:00 11/12/16 08:44 Pantoprazole Sodium (Protonix) 40 mg DAILYAC PO 11/12/16 07:30 11/12/16 07:38 Trazodone HCl (Desyrel) 150 mg QHS PO 11/11/16 21:00 11/11/16 20:30 ALLERGIES ALLERGIES: Coded Allergies: No Known Drug Allergies (Unverified , 01/16/16) ROS Review of System 14 point ROS conducted with pertinent positives noted above in HPI PHYSICAL EXAM General: Alert, Oriented X3, Cooperative, No acute distress HEENT: Atraumatic, Mucous membr. moist/pink Lungs: Clear to auscultation, Normal air movement Heart: Regular rate, Normal S1, Normal S2 Abdomen: Soft, Other (obese ) Extremities: No edema, Normal pulses Skin: No breakdown, No significant lesion Neuro: Normal speech, Sensation intact Psych/Mental Status: Mental status NL, Other (flat affect ) MUSCULOSKELETAL: Osteoarthritic changes both hands VITALS VITALS Vital Signs Date Time Temp Pulse Resp B/P Pulse Ox O2 Delivery O2 Flow Rate FiO2 11/12/16 08:47 Room Air 11/12/16 08:44 70 124/75 11/12/16 07:20 97.5 19 97 97.5 LABS Lab: Laboratory Tests Test 11/11/16 15:45 11/11/16 16:00 11/11/16 23:44 11/12/16 06:15 White Blood Count 7.5x10^3/uL (4.0-11.0) Red Blood Count 4.53x10^6/uL (3.50-5.40) Hemoglobin 12.4g/dL (12.0-15.5) Hematocrit 37.7% (36.0-47.0) Mean Corpuscular Volume 83fL (79-100) Mean Corpuscular Hemoglobin 28pg (25-35) Mean Corpuscular Hemoglobin Concent 33g/dL (31-37) Red Cell Distribution Width 14.9% (11.5-14.5) Platelet Count 224x10^3/uL (140-400) Neutrophils (%) (Auto) 54% (31-73) Lymphocytes (%) (Auto) 36% (24-48) Monocytes (%) (Auto) 8% (0-9) Eosinophils (%) (Auto) 2% (0-3) Basophils (%) (Auto) 1% (0-3) Neutrophils # (Auto) 4.0x10^3uL (1.8-7.7) Lymphocytes # (Auto) 2.7x10^3/uL (1.0-4.8) Monocytes # (Auto) 0.6x10^3/uL (0.0-1.1) Eosinophils # (Auto) 0.2x10^3/uL (0.0-0.7) Basophils # (Auto) 0.1x10^3/uL (0.0-0.2) Sodium Level 146mmol/L (136-145) Potassium Level 4.1mmol/L (3.5-5.1) Chloride Level 109mmol/L (98-107) Carbon Dioxide Level 30mmol/L (21-32) Anion Gap 7 (6-14) Blood Urea Nitrogen 17mg/dL (7-20) Creatinine 0.9mg/dL (0.6-1.0) Estimated GFR (Cockcroft-Gault) 79.3 Glucose Level 102mg/dL (70-99) Calcium Level 9.0mg/dL (8.5-10.1) Troponin I Quantitative < 0.017ng/mL (0.000-0.055) < 0.017ng/mL (0.000-0.055) < 0.017ng/mL (0.000-0.055) Thyroid Stimulating Hormone (TSH) 0.589uIU/mL (0.358-3.74) Urine Color Yellow Urine Clarity Clear Urine pH 8.0 Urine Specific [place] 1.025 Urine Protein Negativemg/dL (NEG-TRACE) Urine Glucose (UA) Negativemg/dL (NEG) Urine Ketones (Stick) Negativemg/dL (NEG) Urine Blood Negative (NEG) Urine Nitrite Negative (NEG) Urine Bilirubin Negative (NEG) Urine Urobilinogen Dipstick 1.0mg/dL (0.2 mg/dL) Urine Leukocyte Esterase Small (NEG) Urine RBC 0/HPF (0-2) Urine WBC 1-4/HPF (0-4) Urine Squamous Epithelial Cells Occ/LPF Urine Amorphous Sediment Present/HPF Urine Bacteria Few/HPF (0-FEW) Urine Mucus Slight/LPF ECHOCARDIOGRAM ECHOCARDIOGRAM <Conclusion> Normal LV systolic function. EF 65% There is mild pulmonary hypertension. The PA pressure was estimated at 41 mmHg. No significant valvular abnormalities. DATE: 09/05/15 1134 STRESS TEST STRESS TEST Conclusion 1. No EKG evidence of stress-induced ischemia. 2. Technically difficult study. 3. Nuclear imaging suggested a small region of reversible ischemia in the distal anterior septal region. 4. Normal left ventricular systolic function with an ejection fraction of greater than 70%. 5. Moderate risk Lexiscan nuclear stress test. DICTATED and SIGNED BY: VANIA SOSA MD DATE: 09/06/15 1325 HEART CATH HEART CATH Conclusion 1. Mildly elevated LVEDP. 2. Normal LV systolic function. EF 60% 3. 1 V CAD 4. Successful PCI of the mid LAD with implantation of a Xience 3.0/23 GAMA. Recommendations Cardiac Rehabilitation Referral Aggressive Medical Therapy Weight Loss Reduction Program ASA 81mg daily Prasugrel 10mg daily for 1 full year. DATE: 10/09/15 1312 ASSESSMENT/PLAN ASSESSMENT/PLAN 1. Chest Pain, atypical 2. CAD s/p PCI/GAMA to LAD 3. HTN 4. Hyperlipidemia 5. FRANCIA 6. Diabetes 7. Obesity 8. Depression Recommendations Troponin series normal- AMI ruled out. Rest portion of MPI underway today; stress tomorrow. NPO after MN. Dietary/lifestyle modification Secondary prevention. Continue ASA. check lipids FRANCIA treatment. Management of depression per PCP Problems: ERIC GUERIN MD 11/13/16 1048: CARDIAC CONSULT ALLERGIES ALLERGIES: Coded Allergies: No Known Drug Allergies (Unverified , 01/16/16) ASSESSMENT/PLAN ASSESSMENT/PLAN Late entry for 11/12/2016. Pt. seen and examined. Agree with above SOCIAL SERVICES SPECIALIST Note. 51 y.o woman with non-cardiac chdest pain Await MPI testing given her prior history. Will follow peripherally, further testing based on stress results Problems: FRANKLIN SANTANA APRN Nov 12, 2016 09:36 ERIC GUERIN MD Nov 13, 2016 10:48
[2016-11-12] MEDS: methylPREDNISolone ACETATE 40 MG/ML VIAL. IM ONE ×4 (09:45→09:56)
[2016-11-12] MEDS ORDERED: BUPIVACAINE MPF 0.25% 10 ML VIAL. IJ ONE (09:45)
[2016-11-12 10:51] VITALS: BP 139/72
[2016-11-12] MEDS ORDERED: REGADENOSON 0.4 MG/5 ML DISP.SYRIN. IV ONE (11:30)
[2016-11-12] MEDS ORDERED: GADOBUTROL 10 MMOL/10 ML VIAL IV ONE (11:45)
--- NOTE | 2016-11-12 12:26 | RAD ---
PROCEDURE Lumbar spine MRI with and without contrast. HISTORY Lower back pain and lower extremity radiculopathy. TECHNIQUE Multiplanar and multi sequence magnetic resonance imaging of the lumbar spine was performed prior to and following the administration of 10 cc Gadavist intravenous contrast. COMPARISON None. FINDINGS There is no significant listhesis. The vertebral bodies are normal in height and the disc spaces are preserved. No suspicious osseous lesion is seen. The conus terminates at L1. There is slight decreased T1 marrow signal intensity, not within limits to suggest a marrow infiltrative process or anemia. No suspicious enhancing lesion is seen. There is colonic diverticulosis. At L1-L2 and L2-L3, there is no stenosis. At L3-L4, there is endplate remodeling. There is no stenosis. At L4-L5, there is a minimal disc bulge with anterior annular tear and endplate remodeling. There is mild facet arthropathy. There is no stenosis. At L5-S1, there is mild facet arthropathy. There is no stenosis. IMPRESSION 1. Minimal degenerative change within the lumbar spine, without significant foraminal or central canal stenosis. 2. No acute finding. Electronically signed by: Paris Lacy (Nov 12, 2016 12:25:03)
[2016-11-12 15:02] VITALS: BP 118/64
--- NOTE | 2016-11-12 16:00 | RAD ---
EXAM: Thoracic spine 3 views. HISTORY: Thoracic back pain. COMPARISON: None. FINDINGS: A minimal mid thoracic dextrocurvature is within normal limits. Vertebral body heights are maintained, and no fractures are identified. There is mild upper and mid thoracic degenerative disc disease. IMPRESSION: 1. Mild upper and mid thoracic degenerative disc disease.
--- NOTE | 2016-11-12 16:20 | RAD ---
EXAM: 1. Lumbar spine 5 views. 2. Frontal pelvis with bilateral two-view hip. HISTORY: Low back, pelvic and bilateral hip pain. COMPARISON: 10/24/2009. FINDINGS: The alignment of the lumbar spine is normal. Vertebral body heights are maintained, and no fractures are identified. Intervertebral disc heights are maintained. There is mild endplate remodeling from L3 through S1. Facet osteoarthritis appears moderate from L4 through S1. No fractures are appreciated in the pelvis. The joint spaces and alignment of both hips are maintained. There appears to be contrast material in the bladder from a prior procedure. There are mild degenerative changes of the pubic symphysis. IMPRESSION: 1. Minimal degenerative disc disease from L3 through S1. 2. No fractures or clear degenerative changes at the pelvis/hips.
[2016-11-12 19:00] VITALS: BP 124/61
[2016-11-12] MEDS: traZODone 50 MG TABLET. PO SCH (20:48)
[2016-11-12] MEDS: ATORVASTATIN CALCIUM 40 MG TABLET. PO SCH (20:48)
[2016-11-12] MEDS: CITALOPRAM 20 MG TABLET. PO SCH (20:48)
[2016-11-12 23:00] VITALS: BP 117/76
[2016-11-13 03:00] VITALS: BP 125/72
[2016-11-13 04:48] LABS: CHOLESTEROL/HDL RATIO 2.3
--- NOTE | 2016-11-13 05:01 | CONS ---
DATE OF CONSULTATION: 11/12/2016 ATTENDING PHYSICIAN: Dr. Robles. The patient was seen at the request of Dr. Robles for rehab evaluation about her back and hip area pain. 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 The patient with history of coronary artery disease, status post stent placed soon after her father in 08/2015. The patient developed a bursitis in her hips and that has progressed to lower back pain without any specific injury. Dr. Yang referred her to outpatient physical therapy. She had been attending the physical therapy and she mentioned to physical therapy that she is not feeling well and having some vague chest pain on 11/11/2016 and she felt her head is foggy and therapist encouraged her to come to the Emergency Room where she was seen and evaluated and ER doctor noted that she complained of chest discomfort on 11/10/2016 and she is having some pain that comes and goes without any activity, without any shortness of breath. She apparently had some allergy symptoms. She still feels somewhat depressed since her father in 08/2015. She lives alone. She had ____ to manage. PAST MEDICAL HISTORY: Includes lipoma removed, hypertension, hyperlipidemia, sleep apnea, diverticulosis, colon polyps, irritable bowel, gastroesophageal reflux disease, osteoarthritis, diabetes mellitus, depression, anxiety, anemia, not known allergic to any medication, BUT ASPIRIN CONTAINING PRODUCTS UPSET HER STOMACH despite taking Prilosec. She also complains of right shoulder pain going on for a while. She denies any tingling, numbness sensation in the extremities or any trouble with her bowel or bladder control. Most of the pain in her lower back and hip area, mainly while up sitting, standing or walking. PHYSICAL EXAMINATION: Today revealed a middle-aged female. She is obese. She is alert, oriented to time, place, person and circumstance and follows commands appropriately, moves all 4 extremities voluntarily where she had 4+/5 grade muscle strength and deep tendon reflexes are decreased overall. She had equal perception of touch and pinprick sensation bilaterally. She had tenderness to palpation over right shoulder anterior aspect, over right upper trapezius muscles, over left mid thoracic paraspinal muscles and also over sacroiliac joint area and trochanteric bursa bilaterally. Straight leg raising test is negative bilaterally. She is independent with bed mobility and transfers. I have not tested her ambulation skills at this time. Her skin is intact at this time. She had a crepitus on range of motion of both knee joint without any obvious knee joint effusion. ASSESSMENT: A middle-aged female with subacute lumbar sprain without any clinical evidence of lumbar radiculopathy. The patient probably had degenerative disk disease of lumbar vertebrae with back pain and also bilateral trochanteric bursitis and tendinitis, right shoulder and also right upper trapezius and left mid thoracic paraspinal muscle strain. The patient with coronary artery disease, status post stenting, also gastroesophageal reflux disease, hypertension, hyperlipidemia, sleep apnea, diverticulosis, colonic polyps, irritable bowel syndrome, degenerative joint disease of both knees, diabetes mellitus, depression, anxiety and anemia. RECOMMENDATIONS: At her request, I have injected painful left sacroiliac joint area and left trochanteric bursa under aseptic skin technique after skin preparation using alcohol swab and she tolerated the procedure satisfactorily without any side effects. To try her with lumbar corset and ask physical therapy to see her for instructions in proper body mechanics and Codman's exercise to her right shoulder. I have reviewed with her home exercise program and agree with the plans for MRI scan, to also ask thoracic spine x-rays to make sure she does not have any lesion down there, home when medically stable with outpatient followup. Dr. Robles, I appreciate asking me to participate in care of this interesting patient. I will be glad to follow her with you as needed for her rehabilitation. WYATT BAIN MD DR: ALFREDO/ariel JOB#: [id number] / [id number]
[2016-11-13 07:00] VITALS: BP 121/66
[2016-11-13] MEDS ORDERED: REGADENOSON 0.4 MG/5 ML DISP.SYRIN. IV ONE (07:30)
[2016-11-13] MEDS: FERROUS SULFATE 325 MG TABLET PO SCH (08:57)
[2016-11-13] MEDS: ASPIRIN ENTERIC COATED 81 MG TABLET.DR. PO SCH (08:57)
[2016-11-13] MEDS: PANTOPRAZOLE 40 MG TABLET. PO SCH (08:57)
[2016-11-13] MEDS: CHOLECALCIFEROL (VITAMIN D3) 1,000 UNIT TABLET PO SCH (08:57)
[2016-11-13] MEDS: MULTIVITAMIN with MINERAL TABLET. PO SCH (08:57)
[2016-11-13] MEDS: MAGNESIUM OXIDE 400 MG TABLET PO SCH (08:57)
[2016-11-13] MEDS: CETIRIZINE HCL 10 MG TABLET PO SCH (08:58)
[2016-11-13] MEDS: METOPROLOL SUCC 24HR ER 25 MG TAB.ER.24H. PO SCH (08:58)
[2016-11-13] MEDS: LISINOPRIL 10 MG TABLET PO SCH (08:58)
[2016-11-13] MEDS: HYDROCODONE/APAP 5/325MG TABLET. PO PRN (08:59)
--- NOTE | 2016-11-13 10:23 | PDOC ---
PROGRESS NOTES Subjective Subjective She admits soreness in her back. Objective Objective Vital Signs Date Time Temp Pulse Resp B/P Pulse Ox O2 Delivery O2 Flow Rate FiO2 11/13/16 10:00 Room Air 11/13/16 08:58 77 121/66 11/13/16 07:00 97.9 96 97.9 11/13/16 03:00 20 Intake and Output 11/13/16 07:00 Intake Total 800 ml Balance 800 ml Intake Oral 800 ml # Voids 4 Physical Exam Physical Exam She is supine in bed and seems to be in no acute distress and she continues with tenderness to palpation over sacroiliac joints,trochanteric bursa and left mid thoracic paraspinal muscles.SLR test is negative bilaterally.Mri scan of lumbar spine revealed mild DDD and DJD of lumbar vertebrae and x-ray thoracic spine revealed DDD and DJD without any spinal stenosis.She is getting up with lumbar corset. Assessment Assessment Problems Medical Problems: (1) Chest pain Status: Acute Plan Plan of Usp when medically stable with out patient follow up. Comment Review of Relevant I have reviewed the following items angelo (where applicable) has been applied. Labs Laboratory Tests Test 11/11/16 15:45 11/11/16 16:00 11/11/16 23:44 11/12/16 06:15 White Blood Count 7.5x10^3/uL (4.0-11.0) Red Blood Count 4.53x10^6/uL (3.50-5.40) Hemoglobin 12.4g/dL (12.0-15.5) Hematocrit 37.7% (36.0-47.0) Mean Corpuscular Volume 83fL (79-100) Mean Corpuscular Hemoglobin 28pg (25-35) Mean Corpuscular Hemoglobin Concent 33g/dL (31-37) Red Cell Distribution Width 14.9% (11.5-14.5) Platelet Count 224x10^3/uL (140-400) Neutrophils (%) (Auto) 54% (31-73) Lymphocytes (%) (Auto) 36% (24-48) Monocytes (%) (Auto) 8% (0-9) Eosinophils (%) (Auto) 2% (0-3) Basophils (%) (Auto) 1% (0-3) Neutrophils # (Auto) 4.0x10^3uL (1.8-7.7) Lymphocytes # (Auto) 2.7x10^3/uL (1.0-4.8) Monocytes # (Auto) 0.6x10^3/uL (0.0-1.1) Eosinophils # (Auto) 0.2x10^3/uL (0.0-0.7) Basophils # (Auto) 0.1x10^3/uL (0.0-0.2) Sodium Level 146mmol/L (136-145) Potassium Level 4.1mmol/L (3.5-5.1) Chloride Level 109mmol/L (98-107) Carbon Dioxide Level 30mmol/L (21-32) Anion Gap 7 (6-14) Blood Urea Nitrogen 17mg/dL (7-20) Creatinine 0.9mg/dL (0.6-1.0) Estimated GFR (Cockcroft-Gault) 79.3 Glucose Level 102mg/dL (70-99) Calcium Level 9.0mg/dL (8.5-10.1) Troponin I Quantitative < 0.017ng/mL (0.000-0.055) < 0.017ng/mL (0.000-0.055) < 0.017ng/mL (0.000-0.055) Thyroid Stimulating Hormone (TSH) 0.589uIU/mL (0.358-3.74) Urine Color Yellow Urine Clarity Clear Urine pH 8.0 Urine Specific [place] 1.025 Urine Protein Negativemg/dL (NEG-TRACE) Urine Glucose (UA) Negativemg/dL (NEG) Urine Ketones (Stick) Negativemg/dL (NEG) Urine Blood Negative (NEG) Urine Nitrite Negative (NEG) Urine Bilirubin Negative (NEG) Urine Urobilinogen Dipstick 1.0mg/dL (0.2 mg/dL) Urine Leukocyte Esterase Small (NEG) Urine RBC 0/HPF (0-2) Urine WBC 1-4/HPF (0-4) Urine Squamous Epithelial Cells Occ/LPF Urine Amorphous Sediment Present/HPF Urine Bacteria Few/HPF (0-FEW) Urine Mucus Slight/LPF Test 11/13/16 03:40 Triglycerides Level 39mg/dL (0-150) Cholesterol Level 108mg/dL (0-200) LDL Cholesterol, Calculated 53mg/dL (0-100) VLDL Cholesterol, Calculated 8mg/dL (0-40) HDL Cholesterol 47mg/dL (40-60) Cholesterol/HDL Ratio 2.3 Laboratory Tests Test 11/13/16 03:40 Triglycerides Level 39mg/dL (0-150) Cholesterol Level 108mg/dL (0-200) LDL Cholesterol, Calculated 53mg/dL (0-100) VLDL Cholesterol, Calculated 8mg/dL (0-40) HDL Cholesterol 47mg/dL (40-60) Cholesterol/HDL Ratio 2.3 Medications Current Medications Ondansetron HCl (Zofran) 4 mg PRN Q8HRS PRN IV NAUSEA/VOMITING; Start 11/11/16 at 18:00; Stop 11/12/16 at 17:59; Status DC Morphine Sulfate 4 mg PRN Q2HR PRN IV PAIN; Start 11/11/16 at 18:00; Stop at 17:59; Status DC Acetaminophen (Tylenol) 650 mg PRN Q4HRS PRN PO FEVER Last administered on 17:45; Start 11/11/16 at 18:00; Stop 11/12/16 at 17:59; Status DC Aspirin (Children'S Aspirin) 324 mg 1X ONCE PO Last administered on 11/11/16 18:20; Start 11/11/16 at 18:15; Stop 11/11/16 at 18:16; Status DC Aspirin (Ecotrin) 81 mg DAILY PO Last administered on 11/13/16 08:57; Start 11/12/16 at 09:00 Atorvastatin Calcium (Lipitor) 40 mg QHS PO Last administered on 11/12/16 20:48 ; Start 11/11/16 at 21:00 Cetirizine HCl (Zyrtec) 10 mg DAILY PO Last administered on 11/13/16 08:58; Start 11/12/16 at 09:00 Citalopram Hydrobromide (Celexa) 20 mg HS PO Last administered on 11/12/16 20: 48; Start 11/11/16 at 21:00 Acetaminophen/ Hydrocodone Bitart (Lortab 5/325) 1 tab PRN Q6HRS PRN PO PAIN Last administered on 11/13/16 08:59; Start 11/11/16 at 19:15 Lisinopril (Prinivil) 10 mg DAILY PO ; Start 11/11/16 at 20:00 Metoprolol Succinate (Toprol Xl) 25 mg DAILY PO Last administered on 11/13/16 08:58; Start 11/11/16 at 20:00 Prasugrel (Effient) 10 mg DAILYWBKFT PO ; Start 11/12/16 at 08:00; Stop 11/12/16 at 12:18; Status DC Vitamin D (Vitamin D3) 1,000 unit DAILY PO Last administered on 11/13/16 08:57 ; Start 11/12/16 at 09:00 Ferrous Sulfate (Feosol) 325 mg DAILYWBKFT PO Last administered on 11/13/16 08: 57; Start 11/12/16 at 08:00 Magnesium Oxide (Magnesium Oxide) 200 mg DAILY PO Last administered on 08:57; Start 11/12/16 at 09:00 Multivitamins (Thera M Plus) 1 tab DAILY PO Last administered on 11/13/16 08:57 ; Start 11/12/16 at 09:00 Non-Formulary Medication 400 mcg DAILY PO ; Start 11/12/16 at 09:00; Status UNV Pantoprazole Sodium (Protonix) 40 mg DAILYAC PO Last administered on 11/13/16 08:57; Start 11/12/16 at 07:30 Trazodone HCl (Desyrel) 150 mg QHS PO Last administered on 11/12/16 20:48; Start 11/11/16 at 21:00 Methylprednisolone Acetate (Depo-Medrol 40mg Vial) 40 mg 1X ONCE IM ; Start 11/12/16 at 09:45; Stop 11/12/16 at 09:46; Status DC Methylprednisolone Acetate (Depo-Medrol 40mg Vial) 40 mg 1X ONCE IM ; Start 11/12/16 at 09:45; Stop 11/12/16 at 09:46; Status DC Bupivacaine HCl (Sensorcaine-Mpf 0.25%) 10 ml 1X ONCE IJ Last administered on 11/12/16 09:56; Start 11/12/16 at 09:45; Stop 11/12/16 at 09:46; Status DC Regadenoson (Lexiscan) 0.4 mg 1X ONCE IV ; Start 11/12/16 at 11:30; Stop at 11:31; Status DC Gadobutrol (Gadavist) 10 mmol 1X ONCE IV Last administered on 11/12/16 11:56; Start 11/12/16 at 11:45; Stop 11/12/16 at 11:46; Status DC Regadenoson (Lexiscan) 0.4 mg 1X ONCE IV Last administered on 11/13/16 08:34; Start 11/13/16 at 07:30; Stop 11/13/16 at 07:31; Status DC Active Scripts Active [place] 5-325 Tablet (Acetaminophen/Hydrocodone Bitart) 1 Each Tablet 1 Tab PO PRN Q6HRS PRN Atorvastatin Calcium 40 Mg Tablet 40 Mg PO QHS 30 Days Effient (Prasugrel Hcl) 10 Mg Tablet 10 Mg PO DAILYWBKFT 30 Days Metoprolol Succinate ( Xl ) (Metoprolol Succinate) 25 Mg Tab.er.24h 25 Mg PO DAILY 30 Days Lisinopril 10 Mg Tablet 10 Mg PO DAILY 30 Days Reported Vitamin B12 (Cyanocobalamin (Vitamin B-12)) 2,500 Mcg Tablet 1,000 Mcg PO Daily Multiple Vitamin (Multivitamin) 1 Each Tablet 1 Each PO DAILY Vitamelts Fast Dissolve (Zinc Oxide) 15 Mg Tab.rapdis 30 Ad PO Magnesium (Magnesium Oxide) 250 Mg Tablet 250 Mg PO DAILY Vitamin D3 (Cholecalciferol (Vitamin D3)) 1,000 Unit Capsule 1,000 Unit PO DAILY Cetirizine Hcl 10 Mg Tablet 10 Mg PO DAILY Ferrous Gluconate 325 Mg Tablet 325 Mg PO DAILY Trazodone Hcl 150 Mg Tablet 150 Mg PO HS Estroven Max Strength Caplet (Mv,Ca,Min/Fa/Herbal No.157) 400 Mcg Tablet 400 Mcg PO DAILY Aspir 81 (Aspirin) 81 Mg Tablet.dr 81 Mg PO DAILY Omeprazole 20 Mg Capsule.dr 20 Mg PO DAILY PRN Citalopram Hbr (Citalopram Hydrobromide) 20 Mg Tablet 20 Mg PO HS Vitals/I & O Vital Sign - Last 24 Hours 11/12/16 11/12/16 11/12/16 11/12/16 10:51 15:02 19:00 19:35 Temp 97.4 97.5 97.7 97.4 97.5 97.7 Pulse 71 76 72 Resp 19 19 20 20 B/P 139/72 118/64 124/61 Pulse Ox 97 98 96 O2 Delivery Room Air Room Air Room Air Room Air 11/12/16 11/12/16 11/13/16 11/13/16 20:50 23:00 03:00 07:00 Temp 97.7 97.8 97.9 97.7 97.8 97.9 Pulse 70 63 77 Resp 20 20 20 B/P 117/76 125/72 121/66 Pulse Ox 100 99 96 O2 Delivery Room Air Room Air Room Air 11/13/16 11/13/16 11/13/16 11/13/16 07:45 08:58 08:59 10:00 Pulse 77 B/P 121/66 O2 Delivery Room Air Room Air Room Air Intake and Output 11/12/16 11/12/16 11/13/16 15:00 23:00 07:00 Intake Total 700 ml 100 ml Balance 700 ml 100 ml WYATT BAIN MD Nov 13, 2016 10:23
--- NOTE | 2016-11-13 11:58 | PDOC ---
CARDIO Progress Notes Date and Time Date of Service 11/13/16 Time of Evaluation 1115 Subjective Subjective: No Chest Pain, No shortness of breath, No Palpitations, Other (c/o hip and back pain) Vitals Vitals Vital Signs Date Time Temp Pulse Resp B/P Pulse Ox O2 Delivery O2 Flow Rate FiO2 11/13/16 10:00 Room Air 11/13/16 08:58 77 121/66 11/13/16 07:00 97.9 96 97.9 11/13/16 03:00 20 Weight Weight [ ] Input and Output Intake and Output Intake and Output 11/13/16 07:00 Intake Total 800 ml Balance 800 ml Intake Oral 800 ml # Voids 4 Laboratory Labs Laboratory Tests Test 11/13/16 03:40 Triglycerides Level 39mg/dL (0-150) Cholesterol Level 108mg/dL (0-200) LDL Cholesterol, Calculated 53mg/dL (0-100) VLDL Cholesterol, Calculated 8mg/dL (0-40) HDL Cholesterol 47mg/dL (40-60) Cholesterol/HDL Ratio 2.3 Physical Exam HEENT: Neck Supple W Full Motion Chest: Symmetric LUNGS: Clear to Auscultation Heart: S1S2, RRR Abdomen: Soft N/T, Other (obese ) Extremities: 2+ Dorsalis Pedis, No Edema Neurology: alert, oriented, follow commands Assessment Assessment 1. Chest Pain, atypical 2. CAD s/p PCI/GAMA to LAD; stable. CP free. 3. HTN; well-controlled 4. Hyperlipidemia; LDL 53 5. FRANCIA 6. Diabetes 7. Obesity 8. Depression Recommendations AMI ruled out. 2nd portion of MPI underway today. If negative, may discharge from CV standpoint and f/u in our office with Dr. Turner as previously scheduled. Continue secondary prevention Dietary/lifestyle modification FRANKLIN SANTANA APRN Nov 13, 2016 11:58
--- NOTE | 2016-11-13 13:11 | RAD ---
APPROVED REPORT Test Type: Pharmacological Stress Nurse/Tech: Neida Patton R.N. Test Indications: chest pain Cardiac History: Family history, Hypertension, Diabetes, [place] stent 2016 Medications: See Electronic Medical Record Medical History: See Electronic Medical Record Resting ECG: NSR Resting Heart Rate: 64 bpm Resting Blood Pressure: 128/76mmHg Pretest Chest Pain: No chest pain Nurse/Tech Notes S1S2, lungs sound clear Consent: The procedure was explained to the patient in lay terms. Informed consent was witnessed. Ernesto eout was entered into [employer]. History and Stress Test performed by Neida Patton R.N. Pharm. Details Pharmacologic stress testing was performed using 0.4mg per 5ml of regadenoson given intravenously ove r 7-10 seconds. Stress Symptoms Dyspnea, stomach cramping POST EXERCISE Reason for Termination: Infusion complete Max HR: 99 bpm Max Blood Pressure: 132/68mmHg Blood Pressure response to exercise: Normal blood pressure response during stress. Chest Pain: No. Arrhythmia: No. ST Change: No. INTERPRETATION Stress EKG Conclusion: Baseline EKG showed sinus rhythm. No ischemic changes at peak stress. No arr hythmias. Imaging Protocol IMAGE PROTOCOL: Rest Tc-99m/stress Tc-99m 2 days Rest: Stress: Viability: Radiopharm.Tc99m CzpfnjhepWl60e Sestamibi [id number] 34mCi Duration 15min. 15min. Img Date 11/13/2016 11/13/2016 Inj-Img [id number]. 60min. Rest Admin Site:IV - Right AntecubitalAdministrator:RT Ada (R)(N) Stress Admin Site: IV - Right AntecubitalAdministrator: RT Ada (R)(N) STRESS DATA End Diast. Vol.97.0mlAv. Heart Rate70.0bpm End Syst. Vol.22.0mlCO Index BSA0.0L/min Myocardial Snwv358.0gEject. Csmoruqw29.0% Stress Rates Pk. Fill Rate3.68EDV/secLVtime Pk. Fill 241.75msec Pk. Empty Rate4.15ESV/secLVtime Pk. Jvwnx963.51msec 09/10 Pk. Fill1.21EDV/sec Stress Scores Regional WT0.00Summed WT3.00 Regional WM0.00Summed WM0.00 Study quality was good. Left Ventricular size was Normal at Rest and Stress. Lung uptake was Normal. Left Ventricular ejection fraction is 77%. The rest and stress images show normal perfusion, normal contraction and thickening. LV Perf. Quant 17 Seg. SSS4.00 17 Seg. SRS1.00 17 Seg. SDS3.00 Stress Defect Extent (% LAD)1.30Rest Defect Extent (% LAD)0.00Rev. Defect Extent (% LAD)0.00 Stress Defect Extent (% LCX) 31.30Rest Defect Extent (% LCX)8.80Rev. Defect Extent (% LCX)1.30 Stress Defect Extent (% RCA)0.00Rest Defect Extent (% RCA)0.00Rev. Defect Extent (% RCA)0.00 Stress Defect Extent (% PEPE)8.70Rest Defect Extent (% PEPE)1.50Rev. Defect Extent (% PEPE)0.20 Conclusion 1. Regadenoson cardioisotope stress test did not show any evidence of ischemia or infarct. 2. Normal left ventricular systolic function with ejection fraction calculated at 77%. 3. Low risk for cardiac events.
[2016-11-13 14:59] VITALS: BP 119/72
[2016-11-13] MEDS ORDERED: CELE200C PO (15:59)
[2016-11-13] MEDS ORDERED: CITA20TA9 PO (15:59)
--- NOTE | 2016-11-13 16:06 | PDOC ---
Provider Note Provider Note discharge summary dictated # [id number] Jarad MILLS MD Nov 13, 2016 16:06
--- NOTE | 2016-11-14 01:21 | DS ---
DATE OF DISCHARGE: 11/13/2016 ADMISSION DIAGNOSIS: Chest pain with known coronary artery disease. DISCHARGE DIAGNOSIS: Chest pain with known coronary artery disease. ASSOCIATED DIAGNOSES: Back pain with trochanteric bursitis, depression, hypertension, hyperlipidemia. CONSULTS: Dr. Turner, Dr. Antonio. PROCEDURES: Stress MPI, left trochanteric bursa injection. HISTORY OF PRESENT ILLNESS AND HOSPITAL COURSE: This is a 51-year-old -[place] female who had been going to physical therapy because of some back and hip pain. She told her therapist she was not feeling well and described some chest pain and was sent to the Emergency Room where she was seen and evaluated. Her initial evaluation was unremarkable for acute coronary syndrome and she was admitted for serial enzymes, Cardiology consultation. Fourteen months ago, she had a cardiac stent placed after going through a stressful time when she lost her father. She has continued to have depression symptoms and intermittent chest pain. Her stress MPI test though was unremarkable and low risk for future cardiac events. Her enzymes were serially negative. No further intervention was recommended by Cardiology with routine followup in January recommended. Dr. Antonio saw her in regarding her back pain. MRI of her back did not show any acute disk herniations. She did have an annular tear because of pain in her left hip and sciatic pain in her left leg. She was given a trochanteric bursal injection. He tried to give her a lumbar injection, but she declined due to the discomfort she experienced with the other injection. He has recommended outpatient followup. She is scheduled to see Dr. Casas in the office on Friday. Her home meds are continued. She received 20 mg dose of Celexa last night and slept well. This was on her home medications, but apparently she has not been taking it. It is sent as a new prescription along with Celebrex 200 mg 1 daily. Her other home meds are continued and include aspirin 81 daily, atorvastatin 40 at bedtime, cetirizine 10 mg daily, vitamin D 3000 units daily, citalopram 20 mg at bedtime, cyanocobalamin at 1000 mcg daily, iron gluconate 325 mg daily, [place] 5/325 one q. 6 hours p.r.n. pain which I believe she no longer has at home and it was not helpful here, so a prescription for that was not written, lisinopril 10 mg daily, Mag-Ox 250 mg daily, metoprolol 25 mg extended release daily, multivitamin daily, Estroven 400 mcg daily, omeprazole 20 mg daily, Effient 10 mg with breakfast, trazodone 150 mg at bedtime and zinc oxide 15 mg two daily. Diet will be cardiac. Activity as tolerated with the above followup recommendations. W Ki MILLS MD DR: CHRISTIE/ariel JOB#: [id number] / [id number]
== END 2016-11-13 17:00 | disposition home or self-care (01) | DRG 303 ==
LOC: ER 15:09 → 5 NORTH 17:46
PROVIDERS: ADMIT Family Medicine; ATTEND Family Medicine
PROC: 3E0U33Z Introduction of Anti-inflammatory into Joints, Percutaneous Approach (ICD-10-PCS; principal; 2016-11-13)
DX: I25.10 Atherosclerotic heart disease of native coronary artery without angina pectoris (principal); Z68.42 Body mass index [BMI] 45.0-49.9, adult; E11.9 Type 2 diabetes mellitus without complications; I10 Essential (primary) hypertension; K58.9 Irritable bowel syndrome, unspecified; Z95.5 Presence of coronary angioplasty implant and graft; F32.9 Major depressive disorder, single episode, unspecified; G47.33 Obstructive sleep apnea (adult) (pediatric); E78.5 Hyperlipidemia, unspecified; K21.9 Gastro-esophageal reflux disease without esophagitis; E66.9 Obesity, unspecified; F41.9 Anxiety disorder, unspecified; M17.0 Bilateral primary osteoarthritis of knee; K57.90 Diverticulosis of intestine, part unspecified, without perforation or abscess without bleeding; M54.5 Low back pain; Z60.2 Problems related to living alone; D64.9 Anemia, unspecified; S33.5XXA Sprain of ligaments of lumbar spine, initial encounter; M77.9 Enthesopathy, unspecified; M70.60 Trochanteric bursitis, unspecified hip; X58.XXXA Exposure to other specified factors, initial encounter; Y93.9 Activity, unspecified; Z79.82 Long term (current) use of aspirin; Z79.899 Other long term (current) drug therapy; Z82.49 Family history of ischemic heart disease and other diseases of the circulatory system; Z82.3 Family history of stroke; Z83.3 Family history of diabetes mellitus; Z86.010 Personal history of colon polyps; Y92.9 Unspecified place or not applicable; Y99.9 Unspecified external cause status
CPT/HCPCS: 36415; 71020; 72072; 72110; 72158; 73521; 78452; 80048; 80061; 81001; 84443; 84484; 85027; 87086; 93005; 93017; 96374; 96375; 96376; A9500; A9585; J1030; J2785; J3490; 99285-25

== ENCOUNTER → 2017-04-18 | Day surgery (SDC) | payer BC ==
[~2017-04-18] MED LIST changes: +CELE200C PO; +CHOL100014 PO; -CHOL10007 PO; +CITA20TA9 PO; +HYDROmorphone 2 MG/ML VIAL IV PRN; +IV RINGERS,LACTATED 1000ML 1,000 ML IV SCH; +LIDOCAINE 1% 1 ML SYRINGE. ID PRN; +LIDOCAINE 2% PF Vial for OR 5 ML VIAL. ONE; +MAGN250T10 PO; -MAGN250T5 PO; +MORPHINE SULFATE 2 MG/ML DISP.SYRIN. IV PRN; +ONDANSETRON PF 4 MG/2 ML VIAL. IV PRN; -PRAS10TA4 PO; +PRAS10TA9 PO; +PROCHLORPERAZINE 10 MG/2 ML VIAL. IV PRN; +PROPOFOL 20 ML IV ONE; -SUCR1TAB29 PO; +SUCR1TAB35 PO; +TRAZ150T49 PO; -TRAZ150T55 PO; +fentaNYL PF VIAL 100 MCG/2 ML VIAL IV PRN
[2017-04-18 11:20] VITALS: BP 127/70
--- NOTE | 2017-04-18 20:43 | CONS ---
DATE OF CONSULTATION: 04/18/2017 REASON FOR FOLLOWUP: History of colon polyps. HISTORY OF PRESENT ILLNESS: This is a 52-year-old -[place] female whose past medical history is significant for diabetes, anxiety, colon polyps, diverticulosis and sleep apnea, seen for an interval colon exam. Last colon exam was over 10 years ago, which revealed polyps at that time. There is no melena and/or hematochezia, no diarrhea or constipation. Weight and appetite have been stable, and she is otherwise without additional complaints. PAST MEDICAL HISTORY: History of diabetes, depression, anxiety, colon polyps, diverticulosis and sleep apnea. PAST SURGICAL HISTORY: She has had heart stents and exploratory laparotomy. FAMILY HISTORY: Significant for diabetes in multiple family members, ovarian cancer for an aunt, cerebrovascular accidents with an aunt and an uncle and breast cancer with an aunt and uncle. FAMILY AND SOCIAL HISTORY: She is not a drinker or a smoker. FAMILY HISTORY: Noncontributory. REVIEW OF SYSTEMS: As per records. PHYSICAL EXAMINATION: VITAL SIGNS: Temperature is 97.1, pulse 65, respiratory rate is 20. HEENT: Normocephalic and atraumatic head. Pupils and extraocular movements not tested. Sclerae anicteric. NECK: Supple. LUNGS: Clear. CARDIOVASCULAR: Reveals an S1 and S2 without S3, S4 or appreciable murmur. ABDOMEN: Soft abdomen, normal bowel sounds without appreciable hepatosplenomegaly. EXTREMITIES: Reveal no cyanosis, clubbing or edema. IMPRESSION: History of colonic polyps. Surveillance exam is recommended at this time. Risks and benefits of procedure including risk of perforation during the operation have been discussed with the patient who is willing to proceed. I would like to thank Dr. Casas for allowing us to consult and participate in this patient's care. YUKI PETTIT MD DR: MARCO A/ariel JOB#: [id number] / [id number] [facility] YUKI PETTIT MD
== END | disposition home or self-care (01) ==
LOC: ENDOS 08:54
PROVIDERS: ATTEND Internal Medicine Gastroenterology
DX: Z09 Encounter for follow-up examination after completed treatment for conditions other than malignant neoplasm (principal); Z86.010 Personal history of colon polyps; K64.0 First degree hemorrhoids; K57.30 Diverticulosis of large intestine without perforation or abscess without bleeding; E78.00 Pure hypercholesterolemia, unspecified; I10 Essential (primary) hypertension; E66.9 Obesity, unspecified; Z68.43 Body mass index [BMI] 50.0-59.9, adult; K21.9 Gastro-esophageal reflux disease without esophagitis; F41.9 Anxiety disorder, unspecified; F32.9 Major depressive disorder, single episode, unspecified; D64.9 Anemia, unspecified; Z86.39 Personal history of other endocrine, nutritional and metabolic disease; Z88.8 Allergy status to other drugs, medicaments and biological substances
CPT/HCPCS: 45378; J2704; J2001

== ENCOUNTER → 2020-05-09 | Outpatient (CLI) | payer BC ==
[2017-04-18 11:20] VITALS: BP 127/70
[~2020-05-09] MED LIST changes: -CITA20TA5 PO; +CITA20TA6 PO; +HYDR-2145 PO; +HYDR-3164 PO; -HYDR-971 PO; -HYDR25TA9 PO; -HYDROmorphone 2 MG/ML VIAL IV PRN; -IV RINGERS,LACTATED 1000ML 1,000 ML IV SCH; -LIDOCAINE 1% 1 ML SYRINGE. ID PRN; -LIDOCAINE 2% PF Vial for OR 5 ML VIAL. ONE; +METO-239 PO; -METO25TA9 PO; -MORPHINE SULFATE 2 MG/ML DISP.SYRIN. IV PRN; +OMEP20CA16 PO; -OMEP20CA9 PO; -ONDANSETRON PF 4 MG/2 ML VIAL. IV PRN; -PROCHLORPERAZINE 10 MG/2 ML VIAL. IV PRN; -PROPOFOL 20 ML IV ONE; -fentaNYL PF VIAL 100 MCG/2 ML VIAL IV PRN
--- NOTE | 2020-05-11 08:53 | KCIC ---
BILATERAL SCREENING MAMMOGRAM History: Routine screening. Comparison: Bilateral mammogram July 15, 2017 and back to 2014. Technique: Routine bilateral digital mammogram views were obtained. Findings: Breast Tissue Density A : The breasts are almost entirely fatty. Small mass in the 1:00 A position of the right breast is stable. A couple of benign calcifications are seen. There are no dominant masses, suspicious microcalcifications, or architectural distortion. IMPRESSION: No mammographic evidence of malignancy. Recommend routine screening. BI-RADS category 2: Benign findings. The images were reviewed with computer aided detection. Patient information is entered into the reminder system with a target due date for the next screening mammogram. Mammography is the most sensitive method for finding small breast cancers, but it does not detect them all and is not a substitute for careful clinical examination. A negative mammogram does not negate a clinically suspicious finding and should not result in delay in biopsying a clinically suspicious abnormality. "Our facility is accredited by the [employer] Mammography Program." Electronically signed by: Isidro Wharton MD (05/11/2020 8:50 AM) [facility]
== END | disposition home or self-care (01) ==
LOC: KCIC MAMMO 10:12
PROVIDERS: ATTEND Family Medicine
DX: Z12.31 Encounter for screening mammogram for malignant neoplasm of breast (principal); N64.89 Other specified disorders of breast
CPT/HCPCS: 77067